=== PATIENT | male | born 1945 | race Caucasian/White ===

== ENCOUNTER 2019-08-14 06:35 | Emergency (ER) | payer MEDICARE, SELFPAY ==
[2019-08-14 06:39] VITALS: BP 102/55; PULSE 78; RESP 20; TEMP 37; O2SAT 99; BMI 17.6
--- NOTE | 2019-08-14 07:40 | CT_ITS ---
STUDY: CT ABDOMEN AND PELVIS WITHOUT CONTRAST REASON FOR EXAM: Male, 74 years old. Left gluteal mass RADIATION DOSAGE (If Supplied By Facility): CTDIvol = ( 7.60 ) mGy, DLP = ( 423.44 ) mGycm TECHNIQUE: Transaxial images were obtained from the dome of the diaphragm to the symphysis pubis without oral contrast, and without intravenous contrast. Sagittal and coronal images were reconstructed. Individualized dose optimization techniques were used for this CT. COMPARISON: None. FINDINGS: The visualized lung bases are unremarkable. The visualized portions of the heart are within normal limits. Normal liver. Normal gallbladder and extrahepatic biliary system. Normal spleen. Normal pancreas. Normal bilateral adrenal glands. 2 cm cyst in the upper pole the right kidney. Normal left kidney. Normal visualized stomach. Normal small intestine. Normal colon. There is non-visualization of the appendix. Normal abdominal aorta. Normal inferior vena cava. Normal retroperitoneum. Normal urinary bladder. There is a large (10 cm round) collection of gas within the medial aspect of the left buttock consistent with an abscess which continues anteriorly and superiorly into the pelvis with slight displacement of the rectum to the left. There is no definite sinus tract to the skin surface to suggest decubitus ulcer. No bone destruction to suggest osteomyelitis. Normal osseous structures. CT/Abdomen/Pelvis without Cont IMPRESSION: 10 cm gas collection of the medial aspect of the left buttock worrisome for abscess which extends superiorly and anteriorly into the inferior aspect of the pelvis with displacement of the rectum to the right. Electronically Signed: Hector Eddy MD at 8:50 EDT Tel , Service support ,
--- NOTE | 2019-08-14 07:41 | EKG12_ITS ---
Test Reason : LOWER EXTREM PAIN Blood Pressure : / mmHG Vent. Rate : 076 BPM Atrial Rate : 076 BPM P-R Int : 128 ms QRS Dur : 080 ms QT Int : 380 ms P-R-T Axes : 077 082 065 degrees QTc Int : 427 ms Normal sinus rhythm Normal ECG Confirmed by GWENDOLYN VILLALTA, SHADY ([id number]), proposal editor PARKER JIMENEZ ([id number]) on 08/20/2019 10:56:55 AM Referred By: RYAN Confirmed By:ULISSES SNOW MD
--- NOTE | 2019-08-14 07:42 | ED.DCSUM_ITS ---
History of Present Illness Chief Complaint: Lower Extremity Injury Informant: Patient, Family Onset: - - Possibly a year or more Current Severity: Mild Narrative: Please note the patient has no left lower extremity injury The patient presents with his daughter they both report that for possibly a year or more he has not felt well he has had a growth or fullness area to the left buttock that has gotten progressively worse to the point now he cannot eat he makes very little urine and consciously produces diarrheal bowel movements. He is lost quite a bit of weight. It is to the point now that the left buttock fullness or growth is such that he cannot lay on his back the daughter is been trying to seek medical attention for him for weeks but he is refused and finally it got to the point where he could not eat or drink and he was brought to the hospital for evaluation The patient has possibly never seen a physician in his entire life he believes in natural remedies for healthcare problems, he has no allergies and takes no medications Past Medical History - Allergies and Home Meds Allergies/Adverse Reactions: Allergies No Known Allergies Allergy (Verified 08/14/19 06:36) Primary Care Physician: Care Physician,No Primary [Primary Care Provider] - Past Medical History: - - None as above left buttock mass fullness for possibly a year Smoking Status: Former smoker Review of Systems General: Reports: Chills. Denies: Fever, Sweats Eyes: Denies: Visual changes - bilaterally, Diplopia ENT: Denies: Rhinorrhea, Sore throat Cardiovascular: Denies: Chest pain, Palpitations Respiratory: Denies: Dyspnea, Cough, Dyspnea on exertion Gastrointestinal: Reports: Abdominal pain, Nausea, Vomiting, Diarrhea. Denies: Melena, Hematochezia Genitourinary: Denies: Dysuria, Hematuria, Frequency Musculoskeletal: Denies: Back pain, Extremity Pain Skin: Denies: Rash, Wounds Neurological: Denies: Headache, Weakness, Numbness Physical Exam Vital Signs/Narrative: Vital Signs Temp Pulse Resp BP Pulse Ox 08/14/19 06:39 98.6 F 78 20 H 102/55 L 99 General: Cachectic, Acute Distress Head: Normocephalic, Atraumatic Eyes: Perrl, EOMI ENT: Moist mucous membranes, No rhinorrhea Neck: Supple, Nontender Cardiovascular: Regular rate, Regular rhythm, No murmurs Respiratory: No distress, CTA bilaterally, Chest nontender Abdomen: Soft, Nontender, Nondistended, Normal bowel sounds, - - Reducible right direct inguinal hernia that the patient can easily reduce just above the pubic crest is the skin defect site nontender Rectal: Tenderness, - - He has a large fullness to the left buttock area that appears to be a size of a small cantaloupe, this area swells into the perineum, rectal exam reveals fullness to the left side of the rectum with brown stool, apparent fluctuance, the rectal exam is limited due to pain : - - He has a reducible hernia as above that is nontender easy to reduce, he has no obvious scrotal discomfort Back: Nontender, Normal Inspection Extremities: Nontender, No edema, - - There is a large firm mass to the left buttock the swelling related to this mass there appears to be some fluctuance quite a bit of tenderness extends into the perineum as above t there is some slight redness Skin: Normal color, No rash Neurological: Alert, Oriented x3, Cranial nerves II-XII grossly intact, Normal Strength, Normal Sensation Psychological: Normal affect, Normal Mood Diagnostic/Tx/Re-eval - Medical Decision Making The patient presents with this mass as above vomiting diarrhea unable to care for himself at home no prior healthcare assessments given all the above screening labs obtained IV fluids CT scan pain management and further evaluation white count is 22,000, lactate is 1.7, see the other screening labs, he received IV fluids IV antibiotics, CT scan shows gas involving the left buttock and extending into the left perineum and rectal area please see that report, Discussed the case with the [facility] on-call surgery attending, who after reviewing the images felt the patient could be transferred to tertiary care center, spoke with the family who recommended either [facility] or [facility] spoke with the [facility] as no appropriate beds were available, spoke with [facility] who accepted the patient in transfer to the emergency department for the management Discussed all the above with the patient and his daughter they agree he remains hemodynamicly stable we will transfer all of his records images and arrange for immediate transfer Transfer to [facility] ED Final impression Necrotizing fasciitis left perineum left buttock ED Disposition - Plan for ED Patient: Diagnosis: Necrotizing fasciitis Referrals: Care Physician,No Primary [Primary Care Provider] - Additional Instructions: Transfer via ambulance to be seen at the [facility] emergency department
--- NOTE | 2019-08-14 07:55 | RAD_ITS ---
STUDY: X-RAY CHEST REASON FOR EXAM: Male, 74 years old. Shortness of breath TECHNIQUE: Single AP portable view of the chest. COMPARISON: None. FINDINGS: The lungs are clear and expanded. There is no demonstrated pleural abnormality. Normal size heart. Normal mediastinum and eliana. Normal visualized pulmonary arteries. Normal visualized aortic arch and descending thoracic aorta. Normal visualized thoracic spine. Normal visualized ribs, clavicles, and shoulders. There is no demonstrated abnormality of the visualized soft tissue structures of the upper abdomen. RAD/Chest 1 View (Portable) IMPRESSION: Normal x-ray examination of the chest. Electronically Signed: Hector Eddy MD at 8:31 EDT Tel , Service support ,
[2019-08-14 08:03] LABS: Absolute Lymphocyte Count 0.71 X10^3/uL (0.83-4.51); Absolute Neutrophil Count 19.8 X10^3/uL (2.0-7.7); Basophil# 0.15 X10^3/uL; Basophil% 0.7 % (0-1); Differential Indicated SCAN CRITERIA MET; Eosinophil# 0.02 X10^3/uL; Eosinophils% 0.1 % (0-5); Hematocrit 37.1 % (40-54); Hemoglobin 12.4 g/dL (13.0-16.5); Lymphocyte # 0.71 X10^3/ul (4.0); Lymphocyte % 3.1 % (19-41); Mean Corp Hgb Conc 33.4 g/dL (32-36); Mean Corpuscular Hgb 29.1 pg (27.0-32.0); Mean Corpuscular Volume 87.1 fL (80-94); Mean Platelet Vol. 8.3 fl (6.2-12.0); Monocyte# 1.79 X10^3/uL; Monocyte% 7.9 % (0-10); NRBC Flagged by Analyzer 0 % (0-5); Neutrophil # 19.82 X10^3/uL (2.7-7.7); Neutrophil % 87.2 % (47-70); POSITIVE DIFFERENTIAL YES; Platelet Count 585 K/mm3 (150-450); RBC Distribution Width CV 12.9 % (11.6-14.6); RBC Distribution Width SD 40.8 fl (35.1-43.9); Red Blood Count 4.26 M/mm3 (4.6-6.2); White Blood Count 22.7 K/mm3 (4.4-11.0)
[2019-08-14] MEDS: 0.9% Normal Saline 1,000 ML 1000 ML IV (08:07)
[2019-08-14] MEDS: Morphine 4 MG/ML Syringe IV ×2 (08:08→09:43)
[2019-08-14] MEDS: Ondansetron 4 MG/2 ML Vial IV (08:09)
[2019-08-14 08:13] VITALS: BP 110/49; PULSE 68; RESP 18; O2SAT 99
[2019-08-14 08:21] LABS: ALB/GLOB Ratio 0.6 RATIO (0.9-2.4); AST(SGOT) 24 U/L (15-37); Alanine Aminotransfer ALT/SGPT 35 U/L (16-61); Albumin, Serum 2.3 g/dL (3.2-5.0); Alkaline Phosphatase 115 U/L (45-117); Anion Gap 7 (5-15); BUN 24 mg/dL (7-18); BUN/Creat Ratio 30.3 RATIO (10-20); Calcium,Total 8.3 mg/dL (8.5-10.1); Chloride 102 mmol/L (98-107); Creatinine, Serum 0.79 mg/dL (0.70-1.30); EST Glomerular Filtration Rate 102 mL/min (>60); Est Glom Filt Rate - Afr Amer 123 mL/min (>60); Estimated Creatinine Clearance 50.34 ml/min; Globulin 3.7 g/dL (2.2-4.2); Glucose 109 mg/dL (74-106); Lipase 70 U/L (73-393); Potassium 3.7 mmol/L (3.5-5.1); Sodium Level 136 mmol/L (136-145)
[2019-08-14 09:31] LABS: Lactic Acid 1.7 mmol/L (0.4-2.0)
[2019-08-14 09:31] LABS: Mucous, Urine 0 SEEN /hpf (<or=2+); Red Blood Cells-Urine 0 SEEN /hpf (0-5)
[2019-08-14 09:39] LABS: Color, Urine Yellow (Yellow); Glucose, Dipstick Normal (Normal); Ketone-Dipstick 5 mg/dl (Negative); Leukocyte Esterase-Dipstick 25 /ul (Negative); Nitrite-Dipstick Negative (Negative); Occult Blood-Urine Negative /ul (Negative); Protein-Dipstick 30 mg/dl (Negative); Urine Bilirubin Dipstick Negative (Negative); Urine Clarity Sl. Cloudy (Clear); Urine Urobilinogen 4 mg/dl (Normal)
[2019-08-14 09:41] LABS: Bacteria 1+ /hpf (None Seen); Squamous Epithelial Cells - UA 0-5 SEEN /hpf (0-5); White Blood Cells 0-5 SEEN /hpf (0-5)
[2019-08-14] MEDS: metroNIDAZOLE 500 MG/100 ML BAG 100 MG IV (10:55)
[2019-08-14 10:59] VITALS: BP 101/58; PULSE 79; PULSE 80; RESP 18; TEMP 36.6; O2SAT 98; O2SAT 99
[2019-08-14 11:01] VITALS: BP 101/58; PULSE 85; RESP 18; TEMP 36.6; O2SAT 99
--- NOTE | 2019-08-14 11:51 | ED.RN ---
VANCOMYCIN SENT WITH SQUAD
[2019-08-14 11:57] VITALS: BP 101/52; PULSE 73; RESP 18; TEMP 37; O2SAT 99
[2019-08-14 12:56] LABS: Pathologist Review Reviewed
== END 2019-08-14 11:58 | disposition short-term general hospital (02) ==
PROVIDERS: Emergency Provider Emergency Medicine
DX: M72.6 Necrotizing fasciitis (principal); R64 Cachexia; K40.90 Unilateral inguinal hernia, without obstruction or gangrene, not specified as recurrent; R19.7 Diarrhea, unspecified; R10.9 Unspecified abdominal pain; R11.2 Nausea with vomiting, unspecified; Z87.891 Personal history of nicotine dependence
CPT/HCPCS: 71045; 74176; 80053; 81001; 83605; 83690; 84484; 85025; 87040; 87086; 93005; 96361; 96365; 96366; 96367; 96375; 96376; 99285; J7030; J7050; A4216; J2405

== ENCOUNTER 2019-08-23 11:36 | Inpatient (IN) | payer MEDICARE, SELFPAY ==
[2019-08-23 11:51] VITALS: BP 132/75; PULSE 85; RESP 16; TEMP 37.6; O2SAT 96; BMI 17.6; BMI 20.5
[2019-08-23] MEDS: DAKIN'S SOL HALF STRENGTH (=0.25%) 1 APPLIC TOPICAL ×2 (14:49→21:37)
--- NOTE | 2019-08-23 15:01 | HP.PCM_ITS ---
Problem List (1) Debility Status: Acute (2) Rectal mass Status: Acute (3) Left buttock abscess Status: Acute (4) Klebsiella infection Status: Acute (5) Cachexia Status: Chronic (6) Colostomy present Status: Acute History of Present Illness Date of Admission: 08/23/19 Chief Complaint: Here for rehabilitation, strengthening, prior to discharge home alone. The patient is a 74 year old Male with below past medical history presented to [facility] Emergency Department 08/14/2019 with left lower extremity injury. 08/14/2019 CT abdomen/pelvis showed left buttock gas concerning for abscess, extends superior anteriorly into inferior aspect of pelvis with displacement of rectum to the right. 08/14/2019 EKG normal sinus rhythm, normal EKG. 08/14/2019 Chest X-ray normal. Growth, fullness, left buttock x 1 year, worsening. Patient did not seek medical attention, he has not seen a doctor for his entire life. Loss of appetite, decrease urine output, unable to lie down due to left buttock pain. WBC 22, Lactate 1.7. IV Fluids, IV antibiotics given. Transferred to [facility]. 08/14/2019 Admit to [facility]. IV Vancomycin, IV Zosyn given for abscess. Rectal mass, abscess, fungating rectal mass. Underwent incision and drainage. Underwent laparoscopic colostomy, liver biopsy, abdominal washout. Large perirectal abscess. Palliative medicine consulted for pain management. Tylenol, Oxycodone, Dilaudid for pain control. Wound cultures growing light klebsiella. Zosyn thru 08/30/2019, then oral antibiotics. PT/OT for debility. CEA drawn, Cytology ordered, pending. 08/23/2019 Admit to TCU with debility, here for rehabilitation, strengthening, prior to discharge home alone. Past Medical History Past Medical History (Chronic Problems): Chronic Problems Cachexia (Chronic) Allergies No Known Allergies Allergy (Verified 08/14/19 06:36) Home Medications: Ambulatory Orders Medication Instructions Recorded Acetaminophen [Tylenol] 325 mg PO Q4H PRN PRN 08/23/19 Amoxicillin/Potassium Clav 1 ea PO Q12H 08/23/19 [Augmentin 875-125 Tablet] Desipramine [Norpramin] 25 mg PO QHS 08/23/19 Docusate Sodium 100 mg PO BID PRN PRN 08/23/19 Melatonin 3 mg PO QHS 08/23/19 Oxycodone HCl [Roxicodone] 15 mg PO Q4H PRN PRN 08/23/19 Polyethylene Glycol 3350 [Miralax] 17 gm PO DAILY 08/23/19 Sodium Hypochlorite [Dakins 1 applic TOPICAL TID 08/23/19 Solution 0.25% (1/2 Strength)] morphine SR tablet [MS Contin] 45 mg PO Q12H 08/23/19 Surgical History: - - Laparoscopic transverse colostomy, incision & drainage left buttock abscess, Sigmoidoscopy. Lives: Alone Smoking Status: Former smoker Tobacco Use: Cigarettes Alcohol: None Drugs: None - *Family History Paternal History Items: Cancer - Colon. Sibling History Items: Cancer - Sister with colon cancer., Diabetes Review of Systems Constitutional: Denies: Chills, Fever, Weight Change HEENT: Denies: Head Aches, Sinus Congestion, Sinus Drainage Cardiovascular: Denies: Chest Pain, Palpitations Respiratory: Denies: Cough, Shortness of breath at rest, Sputum production Gastrointestinal: Reports: Abdominal Pain - Liver pain.. Denies: Nausea, Vomiting Genitourinary: Denies: Dysuria Musculoskeletal: Denies: Joint Pain, Joint Tenderness Skin: Denies: Rash, Wounds Neurological: Denies: Numbness, Tingling, Focal weakness Psychiatric: Denies: Anxiety, Depression, Homicidal Ideations, Suicidal Ideations Hematologic/ Lymphatic: Denies: Easy Bruising, Easy Bleeding VTE Information - Inpt Only VTE Present on Admission: No VTE Mechan Device Prophylaxis: Knee High JASS Hose VTE Pharm Prophylaxis ordered?: Yes Patient Problems: Active and Suspected Problems Debility (Acute) Rectal mass (Acute) Left buttock abscess (Acute) Klebsiella infection (Acute) Colostomy present (Acute) - Physical Exam Vitals/I&O's: Vital Signs Temp Pulse Resp BP Pulse Ox 99.6 F H 85 16 132/75 H 96 08/23/19 11:51 08/23/19 11:51 08/23/19 11:51 08/23/19 11:51 08/23/19 11:51 Oxygen Delivery Method Room Air Weight: 63 kg Body Mass Index (BMI) 20.5 Intake and Output for Last 24 Hours 08/21/19 08/22/19 08/23/19 23:59 23:59 23:59 Intake Total 120 / 120 Balance 120 / 120 General: Alert, Oriented x3, Cooperative HEENT: Atraumatic, PERRLA, EOMI, Normocephalic Neck: Supple, No JVD, Negative Carotid Bruits Lungs: Clear to auscultation, Normal air movement Cardiovascular: Regular rate, No murmurs Abdomen: Bowel Sounds Present, Soft, Non Tender, - - Colostomy. Extremities: No edema, Capillary Refill Less than 3 Seconds Skin: No rashes, No breakdown Musculoskeletal: No Tenderness to Palpation of Joints or Extremities Neurological: Cranial nerves II-XII grossly intact Psych/Mental Status: Normal Affect, Appropriate Current Medications Acetaminophen (Tylenol) 325 mg PO Q4H PRN PRN PRN Reason: Pain Score 1-10/10 Amoxicillin/Clavulanate Potassium (Augmentin Tablet) 875 mg PO BIDCM [facility] Stop: 08/30/19 08:01 Desipramine HCl (Norpramin) 25 mg PO QHS [facility] Docusate Sodium (Colace) 100 mg PO BID PRN PRN PRN Reason: Constipation Melatonin (Melatonin) 3 mg PO QHS [facility] Morphine Sulfate (Ms Contin) 45 mg PO Q12 [facility] Nutritional Formula (Lactose Free) (Ensure Clear) 120 ml PO 4X/DAY [facility] Oxycodone HCl (Oxyir) 15 mg PO Q4H PRN PRN PRN Reason: Pain Score 6-10/10 Polyethylene Glycol (Miralax) 17 gm PO DAILY [facility] Sodium Hypochlorite (Dakins Solution 0.25% (1/2 Strength)) 1 applic TOPICAL TID [facility]; Protocol Last Admin: 08/23/19 14:49 Dose: 1 applicatio Documented by: Tuberculin PPD (Tubersol, Aplisol, Ppd) 5 tu ID [id number] ONE Stop: 08/24/19 10:01 Tuberculin PPD (Tubersol, Aplisol, Ppd) 5 tu ID [id number] ONE Stop: 08/31/19 10:01 Assessment/Plan All Active Problems Debility (Acute) Rectal mass (Acute) Left buttock abscess (Acute) Klebsiella infection (Acute) Colostomy present (Acute) 74 year old male with below past medical history hospitalized for perirectal abscess, fungating rectal mass, underwent incision and drainage, transverse colostomy, admitted to TCU with debility, here for rehabilitation, strengthening, prior to discharge home alone. * Debility - PT/OT. * Pain - Tylenol 650MG Q4H PRN pain (1-5), Oxycodone 15MG Q4H PRN pain (6-10), Morphine ER 45MG Q12H. * Bowel - Miralax 17GM daily, Senna/colace 2 tablets BID, Dulcolax 10MG daily PRN. * Pneumonia vaccination - Administer Prevnar 13 and/or Pneumovax 23 as necessary. * DVT prophylaxis - Lovenox 40MG SC daily. * Klebsiella wound infection - Augmentin 875MG BID thru 08/30/2019. * Insomnia - Doxepin 25MG QHS, Melatonin 3MG QHS. * Nutrition - Ensure 120ML 4x/day. * Buttock wounds - Dakin solution topical TID.
[2019-08-23 15:23] VITALS: BP 94/61; PULSE 79; RESP 18; TEMP 36.6; O2SAT 98
--- NOTE | 2019-08-23 15:58 | NURSING ---
PT ARRIVED BY COT FROM [facility] AT 11AM.
--- NOTE | 2019-08-23 15:59 | NURSING ---
PT WANTS TO TALK TO ABOUT GETTING THE FLU AND PNEUMOCOCCAL VACCINE BEFORE GETTING. REPORTED TO YAEL KEARNS
[2019-08-23] MEDS: morphine SR 15 MG Tablet 45 MG PO (17:39)
[2019-08-23] MEDS: Senna/Docusate Sodium 1 Tablet 2 TABLET PO (17:39)
[2019-08-23] MEDS: Ensure Clear 120 ML Liquid PO ×2 (17:40→21:34)
[2019-08-23] MEDS: Amox/Clavulanate 875 MG Tablet PO (17:40)
[2019-08-23] MEDS: Doxepin Hcl 25 MG Capsule PO (21:34)
[2019-08-23] MEDS: MELATONIN 3 MG TABLET PO (21:35)
[2019-08-24] MEDS: DAKIN'S SOL HALF STRENGTH (=0.25%) 1 APPLIC TOPICAL ×3 (05:39→21:04)
[2019-08-24] MEDS: Polyethylene Glycol 3350 17 GM PACKET PO (05:39)
[2019-08-24] MEDS: Ensure Clear 120 ML Liquid PO ×4 (05:39→20:47)
[2019-08-24] MEDS: Senna/Docusate Sodium 1 Tablet 2 TABLET PO ×2 (05:39→17:15)
[2019-08-24] MEDS: Enoxaparin 40 MG/0.4 ML Syringe SC (05:39)
[2019-08-24] MEDS: morphine SR 15 MG Tablet 45 MG PO ×2 (05:41→17:15)
[2019-08-24 06:50] LABS: Absolute Lymphocyte Count 1.38 X10^3/uL (0.83-4.51); Absolute Neutrophil Count 5.2 X10^3/uL (2.0-7.7); Basophil# 0.09 X10^3/uL; Basophil% 1.2 % (0-1); Eosinophil# 0.22 X10^3/uL; Hematocrit 33.5 % (40-54); Lymphocyte # 1.38 X10^3/ul (4.0); Lymphocyte % 18.6 % (19-41); Mean Corp Hgb Conc 32.8 g/dL (32-36); Mean Corpuscular Hgb 29.5 pg (27.0-32.0); Mean Corpuscular Volume 89.8 fL (80-94); Mean Platelet Vol. 8.8 fl (6.2-12.0); Monocyte# 0.49 X10^3/uL; Monocyte% 6.6 % (0-10); NRBC Flagged by Analyzer 0 % (0-5); Neutrophil # 5.18 X10^3/uL (2.7-7.7); Neutrophil % 69.9 % (47-70); Platelet Count 649 K/mm3 (150-450); RBC Distribution Width CV 13.7 % (11.6-14.6); RBC Distribution Width SD 44.6 fl (35.1-43.9); Red Blood Count 3.73 M/mm3 (4.6-6.2); White Blood Count 7.4 K/mm3 (4.4-11.0)
[2019-08-24 07:13] LABS: Anion Gap 4 (5-15); BUN 6 mg/dL (7-18); Calcium,Total 8.1 mg/dL (8.5-10.1); Chloride 107 mmol/L (98-107); EST Glomerular Filtration Rate 141 mL/min (>60); Est Glom Filt Rate - Afr Amer 170 mL/min (>60); Estimated Creatinine Clearance 58.63 ml/min; Glucose 107 mg/dL (74-106); Potassium 3.5 mmol/L (3.5-5.1); Sodium Level 138 mmol/L (136-145)
[2019-08-24] MEDS: Amox/Clavulanate 875 MG Tablet PO ×2 (09:03→17:15)
[2019-08-24] MEDS: Tuberculin,Purif.prot.deriv. 50 TU/ML Vial 5 ML ID (09:09)
[2019-08-24] MEDS: oxyCODONE 5 MG Tablet 15 MG PO ×2 (14:48→23:48)
--- NOTE | 2019-08-24 14:57 | NURSING ---
at 9;30am pt colostomy was leaking. paola patiño and this nurse in room to apply new colostomy.
[2019-08-24 15:42] VITALS: BP 109/55; PULSE 54; RESP 16; TEMP 36.9; O2SAT 98
[2019-08-24] MEDS: Doxepin Hcl 25 MG Capsule PO (20:47)
[2019-08-24] MEDS: Acetaminophen 325 MG Tablet 650 MG PO (20:47)
[2019-08-24] MEDS: MELATONIN 3 MG TABLET PO (20:47)
[2019-08-25] MEDS: morphine SR 15 MG Tablet 45 MG PO ×2 (05:46→17:28)
[2019-08-25] MEDS: Ensure Clear 120 ML Liquid PO ×4 (05:47→20:58)
[2019-08-25] MEDS: Enoxaparin 40 MG/0.4 ML Syringe SC (05:47)
[2019-08-25] MEDS: DAKIN'S SOL HALF STRENGTH (=0.25%) 1 APPLIC TOPICAL ×3 (05:50→20:57)
[2019-08-25] MEDS: Amox/Clavulanate 875 MG Tablet PO ×2 (09:11→17:30)
--- NOTE | 2019-08-25 09:13 | NURSING ---
colostomy leaking from bottom near umbilicus. skin cleaned, stoma beefy red, baseball size, new appliance applied. tried building up area near umbilicus. will continue to monitor. Pt helpful. pt washed up at sink and applied clean gown. bed linens changed. call light in reach.
--- NOTE | 2019-08-25 09:54 | NURSING ---
oncology notified of pt needing appt with them for colon cancer magaly to liver, assistant corporate secretary reporting that they will have doctors review his records first before scheduling appt. Awaiting return call.
--- NOTE | 2019-08-25 10:48 | RAD_ITS ---
STUDY: X-RAY - ABDOMEN/PELVIS REASON FOR EXAM: Male, 74 years old. Constipation TECHNIQUE: Two AP supine views of the abdomen and pelvis. COMPARISON: CT abdomen and pelvis dated 08/14/2019 FINDINGS: Normal visualized lung bases. Nonobstructive bowel gas pattern. No evidence of significant constipation. No evidence of free air. The visualized liver, spleen and kidneys are grossly normal in size and morphology. Normal soft tissue structures. Osseous degenerative changes with possible dextroscoliosis of the thoracolumbar spine. RAD/Abdomen Single View (Portable) IMPRESSION: No acute findings Electronically Signed: Demian Benz DO at 11:32 EDT Tel , Service support ,
--- NOTE | 2019-08-25 11:07 | NURSING ---
Colostomy bag leaking. New colostomy bag applied the following way: Skin cleansed and dried, stoma powder applied, applied a small strip of duoderm to right side of stoma, paste applied to flange area, flange applied, duoderm cut to half zuni and applied to inner circumference of flange ( inner zuni where bag connects), duoderm on top of right outside of flange.
[2019-08-25 11:28] VITALS: PULSE 99; RESP 16
[2019-08-25] MEDS: oxyCODONE 5 MG Tablet 20 MG PO (15:42)
--- NOTE | 2019-08-25 15:49 | NURSING ---
Colostomy bag no longer intact. Colostomy bag replaced using the following steps: Skin cleansed and dried completely, skin barrier applied to surrounding area, stoma powder applied, duoderm applied to right of stoma, duo derm applied to umbilical area, paste applied to flange area, flange applied, duoderm applied over right side of flange and lower end of flange, duoderm secured to flange with paper tape and bag attached.
[2019-08-25 16:00] VITALS: BP 119/72; PULSE 84; RESP 16; TEMP 37.3; O2SAT 96
--- NOTE | 2019-08-25 18:02 | NURSING ---
dr morrison updated on KUB being negative, new order to [facility].
[2019-08-25] MEDS: Acetaminophen 325 MG Tablet 650 MG PO (20:56)
[2019-08-25] MEDS: MELATONIN 3 MG TABLET PO (20:56)
[2019-08-25] MEDS: Doxepin Hcl 25 MG Capsule PO (20:57)
[2019-08-26] MEDS: oxyCODONE 5 MG Tablet 20 MG PO ×3 (02:40→18:42)
[2019-08-26] MEDS: Ensure Clear 120 ML Liquid PO ×4 (02:42→20:57)
--- NOTE | 2019-08-26 02:43 | NURSING ---
Patients colostomy bag changed. Stoma measured 10 mm bigger that yesterday. Patient states he is having increased pain today. Charge nurse notified.
[2019-08-26] MEDS: DAKIN'S SOL HALF STRENGTH (=0.25%) 1 APPLIC TOPICAL ×3 (02:56→21:18)
[2019-08-26] MEDS: Enoxaparin 40 MG/0.4 ML Syringe SC (06:56)
[2019-08-26] MEDS: morphine SR 15 MG Tablet 45 MG PO ×2 (06:58→17:14)
[2019-08-26] MEDS: Amox/Clavulanate 875 MG Tablet PO ×2 (08:41→17:17)
--- NOTE | 2019-08-26 09:53 | PCM.PN.RX ---
<Matti Schuler C - Last Filed: 08/26/19 09:53> Progress Note - Pharmacy Subjective: [] TCU Admission Objective: Allergies No Known Allergies Allergy (Verified 08/14/19 06:36) Current Medications Generic Name Dose Route Start Last Admin Trade Name Freq PRN Reason Stop Dose Admin Acetaminophen 650 mg 08/23/19 15:25 08/25/19 20:56 Tylenol PO 650 mg Q4H PRN PRN Administration Pain Score 1-5/10 Amoxicillin/Clavulanate Potassium 875 mg 08/23/19 17:00 08/26/19 08:41 Augmentin Tablet PO 08/30/19 08:01 875 mg BIDCM GREG Administration Bisacodyl 10 mg 08/23/19 15:25 Dulcolax PO DAILY PRN Constipation Doxepin HCl 25 mg 08/23/19 22:00 08/25/19 20:57 Sinequan PO 25 mg QHS GREG Administration Enoxaparin Sodium 40 mg 08/24/19 06:00 08/26/19 06:56 Lovenox SC 40 mg DAILY@0600 GREG Administration Melatonin 3 mg 08/23/19 22:00 08/25/19 20:56 Melatonin PO 3 mg QHS GREG Administration Morphine Sulfate 45 mg 08/23/19 18:00 08/26/19 06:58 Ms Contin PO 45 mg Q12 GREG Administration Nutritional Formula (Lactose Free) 120 ml 08/23/19 17:00 08/26/19 02:42 Ensure Clear PO 120 ml 4X/DAY GREG Administration Oxycodone HCl 20 mg 08/25/19 08:31 08/26/19 02:40 Oxyir PO 20 mg Q4H PRN PRN Administration Pain Score 6-10/10 Polyethylene Glycol 17 gm 08/24/19 06:00 08/26/19 01:44 Miralax PO Not Given DAILY GREG Senna/Docusate Sodium 2 tablet 08/25/19 12:47 Senokot-S, Lawanda-Colace PO BID PRN Constipation Sodium Hypochlorite 1 applic 08/23/19 14:00 08/26/19 02:56 Dakins Solution 0.25% (1/2 Strength) TOPICAL 1 applicatio TID GREG Administration Protocol Tuberculin PPD 5 tu 08/31/19 10:00 Tubersol, Aplisol, Ppd ID 08/31/19 10:01 X1 ONE Problem List Debility (Acute) Rectal mass (Acute) Left buttock abscess (Acute) Klebsiella infection (Acute) Cachexia (Chronic) Colostomy present (Acute) Vital Signs Temp Pulse Resp BP Pulse Ox 99.2 F H 84 16 119/72 96 08/25/19 16:00 08/25/19 16:00 08/25/19 16:00 08/25/19 16:00 08/25/19 16:00 Oxygen Delivery Method Room Air Weight: 63 kg Body Mass Index (BMI) 20.5 Sodium 138 mmol/L (136-145) 08/24/19 06:23 Potassium 3.5 mmol/L (3.5-5.1) 08/24/19 06:23 Chloride 107 mmol/L (98-107) 08/24/19 06:23 Carbon Dioxide 27.0 mmol/L (21.0-32.0) 08/24/19 06:23 Anion Gap 4 (5-15) L 08/24/19 06:23 BUN 6 mg/dL (7-18) L 08/24/19 06:23 Creatinine 0.60 mg/dL (0.70-1.30) L 08/24/19 06:23 Est GFR (MDRD) Af Amer 170 mL/min (>60) 08/24/19 06:23 Est GFR (MDRD) Non-Af 141 mL/min (>60) 08/24/19 06:23 BUN/Creatinine Ratio 10.0 RATIO (10-20) 08/24/19 06:23 Glucose 107 mg/dL (74-106) H 08/24/19 06:23 Assessment/Plan: 1) Pain: Acetaminophen 650mg po q4h prn for pain score 1-5/10, Oxycodone 20mg po q4h prn for pain score 6-10/10, MS Contin 45mg po q12 hours. Please continue to monitor prn usage and for signs/symptoms of increased/decreased pain. 2) DVT prophylaxis: Lovenox 40mg subq once daily. Pt's Plts are 649. Please continue to monitor. Pt's SrCr is 0.6, and CrCl is 58. Please continue to monitor. 3) Wound Infection: Augmentin 875mg po bid through 08/30/19. Please continue to give medication with food to minimize gi effects. Please continue to monitor for signs/symptoms of infection. Psychotropic Medications: Melatonin 3mg po qhs, Doxepin 25mg po qhs. At least one medication will require a GDR by 01/2020 Unnecessary Medications: none *Bowel Regimen: Bisacodyl 10mg po daily prn for constipation, Miralax 17gm po daily, Senna/Docusate 2 tablets po bid prn for constipation. Pt has not received 2 out of 3 possible Miralax dosed due to diarrhea/loose stool. Please consider making Miralax prn. Thanks Date of Note:: 08/26/19 - Provider Comments Provider responsibility: Provider responsible to enter orders to implement recommendations <Forrest Florence Chi - Last Filed: 08/26/19 17:22> Progress Note - Pharmacy Subjective: [] Objective: Allergies No Known Allergies Allergy (Verified 08/14/19 06:36) Current Medications Generic Name Dose Route Start Last Admin Trade Name Freq PRN Reason Stop Dose Admin Acetaminophen 650 mg 08/23/19 15:25 08/25/19 20:56 Tylenol PO 650 mg Q4H PRN PRN Administration Pain Score 1-5/10 Amoxicillin/Clavulanate Potassium 875 mg 08/23/19 17:00 08/26/19 17:17 Augmentin Tablet PO 08/30/19 08:01 875 mg BIDCM GREG Administration Bisacodyl 10 mg 08/23/19 15:25 Dulcolax PO DAILY PRN Constipation Doxepin HCl 25 mg 08/23/19 22:00 08/25/19 20:57 Sinequan PO 25 mg QHS GREG Administration Enoxaparin Sodium 40 mg 08/24/19 06:00 08/26/19 06:56 Lovenox SC 40 mg DAILY@0600 GERG Administration Melatonin 3 mg 08/23/19 22:00 08/25/19 20:56 Melatonin PO 3 mg QHS GREG Administration Morphine Sulfate 45 mg 08/23/19 18:00 08/26/19 17:14 Ms Contin PO 45 mg Q12 GREG Administration Nutritional Formula (Lactose Free) 120 ml 08/23/19 17:00 08/26/19 17:16 Ensure Clear PO 120 ml 4X/DAY GREG Administration Oxycodone HCl 20 mg 08/25/19 08:31 08/26/19 11:06 Oxyir PO 20 mg Q4H PRN PRN Administration Pain Score 6-1010 Polyethylene Glycol 17 gm 08/24/19 06:00 08/26/19 01:44 Miralax PO Not Given DAILY [facility] Senna/Docusate Sodium 2 tablet 08/25/19 12:47 Senokot-S, Lawanda-Colace PO BID PRN Constipation Sodium Hypochlorite 1 applic 08/23/19 14:00 08/26/19 15:42 Dakins Solution 0.25% (1/2 Strength) TOPICAL 1 applicatio TID [facility] Administration Protocol Tuberculin PPD 5 tu 08/31/19 10:00 Tubersol, Aplisol, Ppd ID 08/31/19 10:01 X1 ONE Problem List Debility (Acute) Rectal mass (Acute) Left buttock abscess (Acute) Klebsiella infection (Acute) Cachexia (Chronic) Colostomy present (Acute) Vital Signs Temp Pulse Resp BP Pulse Ox 98.2 F 105 H 21 H 119/70 99 08/26/19 15:16 08/26/19 15:16 08/26/19 15:16 08/26/19 15:16 08/26/19 15:16 Oxygen Delivery Method Room Air Weight: 63 kg Body Mass Index (BMI) 20.5 Sodium 138 mmol/L (136-145) 08/24/19 06:23 Potassium 3.5 mmol/L (3.5-5.1) 08/24/19 06:23 Chloride 107 mmol/L (98-107) 08/24/19 06:23 Carbon Dioxide 27.0 mmol/L (21.0-32.0) 08/24/19 06:23 Anion Gap 4 (5-15) L 08/24/19 06:23 BUN 6 mg/dL (7-18) L 08/24/19 06:23 Creatinine 0.60 mg/dL (0.70-1.30) L 08/24/19 06:23 Est GFR (MDRD) Af Amer 170 mL/min (>60) 08/24/19 06:23 Est GFR (MDRD) Non-Af 141 mL/min (>60) 08/24/19 06:23 BUN/Creatinine Ratio 10.0 RATIO (10-20) 08/24/19 06:23 Glucose 107 mg/dL (74-106) H 08/24/19 06:23 Assessment/Plan: Psychotropic Medications: Unnecessary Medications: Bowel Regimen: - Provider Comments Provider responsibility: Provider responsible to enter orders to implement recommendations Provider Comments to Recommendations by Pharmacy: Agree
[2019-08-26 15:16] VITALS: BP 119/70; PULSE 105; RESP 21; TEMP 36.8; O2SAT 99
--- NOTE | 2019-08-26 18:49 | NURSING ---
Addendum entered by Sonia Peralta 08/26/19 18:50: Patient reassessed after receiving MS Contin as scheduled. Patient in bed guarding abdomen and states he is having excruciating pain. Patient given PRN OxyIR and charge nurse notified. Original Note: Patient reassessed after receiving MS Contin as scheduled. Patient in bed gaurding abdomen and states he is having excruciating pain. Patient given PRN OxyIR and charge nurse notified.
[2019-08-26] MEDS: MELATONIN 3 MG TABLET PO (20:59)
[2019-08-26] MEDS: Doxepin Hcl 25 MG Capsule PO (20:59)
[2019-08-27] MEDS: oxyCODONE 5 MG Tablet 20 MG PO ×3 (01:36→20:53)
[2019-08-27] MEDS: Acetaminophen 325 MG Tablet 650 MG PO ×2 (01:36→15:16)
[2019-08-27] MEDS: DAKIN'S SOL HALF STRENGTH (=0.25%) 1 APPLIC TOPICAL ×3 (04:59→22:38)
[2019-08-27] MEDS: Ensure Clear 120 ML Liquid PO (04:59)
[2019-08-27] MEDS: morphine SR 15 MG Tablet 45 MG PO ×2 (04:59→17:22)
--- NOTE | 2019-08-27 07:23 | NURSING ---
Pt's ostomy noted to be larger in size and pink vs beef red. Ostomy leaking, drsging removed,skin irritated. Skin surrounding stoma cleansed with soap and water, patted dry. Bleeding noted to base of stoma on left side, small amt. Skin prep applied along with new new appliance and small amt of stoma paste. Will update Dr Florence. Will check to see if Lovenox should be given or held.
[2019-08-27] MEDS: Amox/Clavulanate 875 MG Tablet PO ×2 (08:37→17:22)
--- NOTE | 2019-08-27 11:41 | CASEMGMT ---
Social Work IDT met with patient and daughter for care plan meeting. Discussed patient's progress in therapy. Pt is SBA for toileting, UE and LE ADLS. Continuing to work on endurance and balance. Pt has new colostomy and is painful and has difficulty staying intact with leg exercises, etc. in therapy. Therapy will work on walking, steps and strengthening exercises. Pt is a new liver cancer dx. Nursing working on arranging doctor's appts in [place] vs [place]. Pt and dtr to take it day by day and will reach out to SW at their own pace. Pt cannot return to previous home and dtr cannot take him home on a long-term basis. Explained options with [place], SNF, HHC, Medicaid and Medicare coverage. Pt does not have secondary insurance and is not comfortable paying the copay after day 21 - target DC date 09/12. Explained to pt and dtr, SW will respect taking it day by day, but these options take time to coordinate. Offered assistance at any time with any option and to reach out when ready. Dtr and pt understood and thanked for information. Will continue to follow. Susan Cid, MGIUEL JOYCEW
--- NOTE | 2019-08-27 14:44 | NURSING ---
in to assess the stoma. as patient was resting in bed, noticed a leak near the umbilicus. removed the ostomy appliance. the stoma is beefy red and very edematous. daughter present at bedside and states that the stoma does appear larger than a few days ago. states that he noticed it was larger after he did some core work with therapy. the stoma measures approx 2 1/2 and is slightly oval in shape. the stool opening is near the skin level medially near the umbilicus. this is where most of the leaks are occurring. cannot build up too much in the area or the stool will leak under the appliance. peristomal skin is intact. some mild redness noted. cleansed the peristomal skin with Dial soap and water. rinsed and pat dry. applied a 2 piece flat 4 Eric appliance with the opening cut to approx 2 3/4 with an Adaptic ring and a small dab of paste where the stool opening is. pt tolerated well. will monitor the stoma size. would not recommend a lot of core work at this time. will order some larger appliances to see what will work best for the patient. pt appreciative of care. all questions answered at this time and emotional support provided to patient and family. states they are unsure of the extent of treatment patient wants at this time. has not discussed with the oncologist yet.
[2019-08-27 15:16] VITALS: BP 111/78; PULSE 94; RESP 20; TEMP 36.8; O2SAT 99
--- NOTE | 2019-08-27 18:08 | NURSING ---
RLQ CONCEPCIÓN drain site suture removed without incident. site with some redness, other suggs unremarkable. pt tolerated procedure well
--- NOTE | 2019-08-27 21:15 | NURSING ---
Colostomy leaking. New appliance applied.
--- NOTE | 2019-08-27 22:05 | NURSING ---
Colostomy bag changed again. New appliance applied.
[2019-08-27] MEDS: Doxepin Hcl 25 MG Capsule PO (22:37)
[2019-08-27] MEDS: MELATONIN 3 MG TABLET PO (22:37)
[2019-08-28] MEDS: oxyCODONE 5 MG Tablet 20 MG PO ×4 (02:23→23:21)
--- NOTE | 2019-08-28 03:50 | NURSING ---
Colostomy leaking. New appliance applied.
[2019-08-28] MEDS: morphine SR 15 MG Tablet 45 MG PO ×2 (06:21→17:40)
[2019-08-28] MEDS: DAKIN'S SOL HALF STRENGTH (=0.25%) 1 APPLIC TOPICAL ×3 (06:47→19:58)
--- NOTE | 2019-08-28 08:29 | NURSING ---
was called by the night clerk auditor RN this am stating the ostomy appliance was changed 3 times last pm and is currently leaking. in to assess the appliance at this time. leaking at the lateral and medial sides. removed the appliance. the stoma appears slightly less edematous today. peristomal skin with some mild irritation noted. removed as much as the stoma paste as possible. this was difficult to remove. did notice more bulging to the lower abdomen just inferior to the stoma. unsure if this is tumor or dilation of the bowel. this may also be contributing to the leaks. the stool opening sits right at skin level and this is where most the leaks have been occurring. cleansed peristomal skin with warm water. pat dry. applied a new 2 piece flat Coloplast appliance with a small amount of stoma paste and an Adapt ring. will closely monitor. pt has an appt this am with Dr Webb. pt denies further needs at this time.
[2019-08-28 10:00] VITALS: PULSE 106; RESP 14; O2SAT 99
[2019-08-28] MEDS: Amox/Clavulanate 875 MG Tablet PO ×2 (11:15→17:39)
[2019-08-28] MEDS: Ensure Clear 120 ML Liquid PO ×2 (11:15→17:39)
--- NOTE | 2019-08-28 15:03 | NURSING ---
Pt had another leak. states he had a very large amount of stool come out all at once. states was slightly thicker. feels the pressure just pushed the appliance off. the peristomal skin is starting to get slightly irritated. cleansed gently with warm water. pat dry. applied a new 1 piece Coloplast appliance #[id number]. used small amount of stoma paste and did not use an Adapt ring this time to keep closer to the skin. pt tolerated well. pt talked a lot with this nurse about his appointment with the oncologist. states that he plans to leave with Hospice care. States he is good with it. talked a lot about his sedrick and how he is at peace with God. states I'm ready. pt tearful off and on. emotional support and listening ear provided. pt denies further needs at this time. will continue to monitor. there are extra supplies in room if needed.
[2019-08-28 15:25] VITALS: BP 127/77; PULSE 98; RESP 17; TEMP 36.7; O2SAT 97
--- NOTE | 2019-08-28 16:25 | CHAPLAIN ---
Type of Pastoral Visit _x__ Initial Visit ___ Follow-up Visit ___ On-call Visit ___ General Patient Visit ___ Spiritual Assessment ___ Family Conference ___ Bereavement ___ Rapid Response ___ Code Blue ___ Other (describe below) Pastoral Care Referral From _x__ Patient ___ Family _x__ Nurse ___ Physician ___ Java Web Application Developer ___ Operations Advisor ___ Other (describe below) Sacrament/Intervention _x__ Active listening ___ Anointing ___ Druze ___ Bereavement ___ Communion _x__ Lindsay exploration ___ _x__ Life review _x__ Prayer ___ Reconciliation ___ Sacrament of Sick _x__ Supportive presence ___ Wedding ___ Other (describe below) Pastoral Comments patient received news of terminal cancer diagnosis earlier; daughter is with him at bedside; pt is very spiritually minded and presents with very good attitude about diagnosis and ; family unit is small but daughter gives lots of support; pt welcomed prayer and future visits from manager insurance
--- NOTE | 2019-08-28 17:06 | CASEMGMT ---
Addendum entered by Susan Cid 08/28/19 17:22: [facility] meeting scheduled 08/29 at 10:30 am. Will continue to follow. Original Note: Social Work Received call from Oncology office to discuss with pt hospice options. Met with daughter and pt and spoke at length about wishes and hospice options - SNF, [facility] and Home, along with financial liability. Pt chose for a referral to [facility] with [facility], if not eligible at this time, for [facility] to follow at [facility] and will apply for Medicaid. Referrals made to [facility] and [facility]. Provided pt with Medicaid application. [facility] to schedule assessment, and will move forward with next step. MIGUEL VelascoW
[2019-08-28] MEDS: MELATONIN 3 MG TABLET PO (19:57)
[2019-08-28] MEDS: Doxepin Hcl 25 MG Capsule PO (19:57)
[2019-08-29] MEDS: Ensure Clear 120 ML Liquid PO ×3 (05:16→16:40)
[2019-08-29] MEDS: morphine SR 15 MG Tablet 45 MG PO ×2 (05:16→16:37)
[2019-08-29] MEDS: DAKIN'S SOL HALF STRENGTH (=0.25%) 1 APPLIC TOPICAL ×2 (05:23→14:48)
[2019-08-29] MEDS: Amox/Clavulanate 875 MG Tablet PO ×2 (07:42→16:48)
[2019-08-29 10:00] VITALS: PULSE 100; RESP 18
--- NOTE | 2019-08-29 10:05 | NURSING ---
Colostomy appliance had been changed 4 times yesterday. 3 times last evening within 2 hours. appliance is currently intact. had suggested nursing try a wound drainage appliance since the other appliances have not seemed to be sealing well. this is what has held the best so far. will continue to monitor. pt and daughter to meet with Hospice this am. pt aware to call if leak noted.
--- NOTE | 2019-08-29 10:51 | NURSING ---
Pt had been up into the bathroom to empty the appliance. noticed a small leak near the umbilicus. pt back into bed. removed appliance. very little irritation noted to the peristomal skin. cleansed with Dial soap and water. rinsed and dried. applied a larger wound drainage appliance. this appliance has seemed to hold better and is more flexible. applied with a small amount of stoma paste. pt tolerated well. pt and daughter are currently meeting with Hospice. will continue to monitor.
[2019-08-29] MEDS: oxyCODONE 5 MG Tablet 20 MG PO (11:47)
--- NOTE | 2019-08-29 14:54 | DCINST_ITS ---
- Discharge Diagnoses Current Active Problems: Current Active and Chronic Problems (Last Updated 08/28/19 @ 11:07 by Micki Jara) Debility (Acute) Left buttock abscess (Acute) Klebsiella infection (Acute) Cachexia (Chronic) Colostomy present (Acute) Rectum cancer (Acute) Liver metastases (Acute) You will use the following diet at home:: No restrictions, Regular Your food should be the consistency of: Regular Your liquids should be the consistency of: Regular/Thin Discharge Activity: Return to Normal Activity, May Shower, Use Walker Weight Bearing Status: Weight bearing as tolerated Call your doctor if you observe: Fever of 101 or Higher, Inability to urinate, Inability to have a bowel movement, Shortness of breath, Chest pain, Uncontrolled pain Allergies/Adverse Reactions: Allergies No Known Allergies Allergy (Verified 08/14/19 06:36) Medications to take at Discharge Acetaminophen [Tylenol] 325 mg PO Q4H PRN PRN 08/23/19 Melatonin 3 mg PO QHS 08/23/19 Polyethylene Glycol 3350 [Miralax] 17 gm PO DAILY 08/23/19 Sodium Hypochlorite [Dakins Solution 0.25% (1/2 Strength)] 1 applic TOPICAL TID 08/23/19 Bisacodyl [Dulcolax] 10 mg PO DAILY PRN tablet 08/29/19 Doxepin HCl [Sinequan] 25 mg PO QHS capsule 08/29/19 Ensure Clear 120 ml PO 4X/DAY liquid 08/29/19 Oxycodone HCl [Roxicodone] 15 mg PO Q4H PRN PRN 7 Days #60 tab 08/29/19 Senna/Docusate Sodium [Senokot-S] 2 tablet PO BID PRN tablet 08/29/19 morphine SR tablet [Ms Contin] 45 mg PO Q12H 7 Days #42 tab 08/29/19 The following prescriptions were given: morphine SR tablet [Ms Contin] 45 mg PO Q12H 7 Days #42 tab Prescription Printed Oxycodone HCl [Roxicodone] 15 mg PO Q4H PRN PRN 7 Days #60 tab PRN Reason: Pain Score 6-10/10 Prescription Printed Primary Care Physician: Care Physician,No Primary [Primary Care Provider] - Please follow up with your Primary Care Physician in: N/A. Test Results: Test results from this visit will be discussed in further detail at your follow- up appointment, if applicable. Please Follow Up With: Christian Cintron MD When: N/A. Please Follow Up With: Yaima uQach MD When: N/A. Please Follow Up With: [facility] When: N/A. Please Follow Up With: Miryam Chandler APRN-AGA When: N/A. Please Follow Up With: Cruz Grover MD When: N/A. Please Follow Up With: Catherine Webb MD When: N/A. Proposed Discharge Date: 08/29/19
--- NOTE | 2019-08-29 14:55 | PCM.DC.SUM ---
Discharge Date and Diagnosis - Problem List Patient Problems: Active and Suspected Problems (Last Updated 08/28/19 @ 11:07 by Micki Jara) Debility (Acute) Left buttock abscess (Acute) Klebsiella infection (Acute) Colostomy present (Acute) Rectum cancer (Acute) Liver metastases (Acute) Date of Admission: 08/23/19 Date of Discharge: 08/29/19 - Primary Discharge Diagnosis Active and Suspected Problems (Last Updated 08/28/19 @ 11:07 by Micki Jara) Debility (Acute) Left buttock abscess (Acute) Klebsiella infection (Acute) Colostomy present (Acute) Rectum cancer (Acute) Liver metastases (Acute) - Secondary Discharge Diagnosis Chronic Problems (Last Updated 08/28/19 @ 11:07 by Micki Jara) Cachexia (Chronic) Hospital Course and Treatment Imaging Results: 08/23/19 12:11 Diet: Regular Diet Type of Dietary Supplement:: Ensure Complete Clinical Impression(s) from Imaging Studies KUB X-Ray 08/25/19 10:48 IMPRESSION: No acute findings Electronically Signed: Demian Benz DO at 11:32 EDT Tel , Service support , Consultations 08/23/19 13:04 Consult: Onc/Wound/perinatal instructor Routine Comment: Operations: None Procedures: None Summary of Care Provided: The patient is a 74 year old Male with below past medical history hospitalized for perirectal abscess, fungating rectal mass, underwent incision and drainage, transverse colostomy, admitted to TCU with debility, here for rehabilitation, strengthening, prior to discharge home alone. 08/28/[address] 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 Patient is status post palliative drainage of the left buttock abscess and a divergent colostomy. 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 He cannot tolerate any systemic anticancer therapy without further deterioration of his general condition and therefore I advised maximum comfort measures on the hospice program. Discharge to Inpatient Hospice Unit for pain control. Patient Problems: Active and Suspected Problems (Last Updated 08/28/19 @ 11:07 by Micki Arney) Debility (Acute) Left buttock abscess (Acute) Klebsiella infection (Acute) Colostomy present (Acute) Rectum cancer (Acute) Liver metastases (Acute) - Physical Exam Vitals/I&O's: Vital Signs Temp Pulse Resp BP Pulse Ox 98.1 F 98 17 127/77 H 97 08/28/19 15:25 08/28/19 15:25 08/28/19 15:25 08/28/19 15:25 08/28/19 15:25 Oxygen Delivery Method Room Air Weight: 63 kg Body Mass Index (BMI) 20.5 Intake and Output for Last 24 Hours 08/27/19 08/28/19 08/29/19 23:59 23:59 23:59 Intake Total 1100 / 1100 600 / 600 240 / 240 Output Total 505 / 505 425 / 425 Balance 595 / 595 175 / 175 240 / 240 Current Medications Acetaminophen (Tylenol) 650 mg PO Q4H PRN PRN PRN Reason: Pain Score 1-03/07 Last Admin: 08/27/19 15:16 Dose: 650 mg Documented by: Amoxicillin/Clavulanate Potassium ([facility]in Tablet) [facility] Stop: 08/30/19 08:01 Last Admin: 08/29/19 07:42 Dose: 875 mg Documented by: Bisacodyl (Dulcolax) 10 mg PO DAILY PRN PRN Reason: Constipation Doxepin HCl (Sinequan) 25 mg PO QHS [facility] Last Admin: 08/28/19 19:57 Dose: 25 mg Documented by: Melatonin (Melatonin) 3 mg PO QHS [facility] Last Admin: 08/28/19 19:57 Dose: 3 mg Documented by: Morphine Sulfate (Ms Contin) 45 mg PO Q12 [facility] Last Admin: 08/29/19 05:16 Dose: 45 mg Documented by: Nutritional Formula (Lactose Free) (Ensure Clear) 120 ml PO 4X/DAY [facility] Last Admin: 08/29/19 11:48 Dose: 120 ml Documented by: Oxycodone HCl (Oxyir) 20 mg PO Q4H PRN PRN PRN Reason: Pain Score 6-10 Last Admin: 08/29/19 11:47 Dose: 20 mg Documented by: Polyethylene Glycol (Miralax) 17 gm PO DAILY [facility] Last Admin: 08/29/19 05:15 Dose: Not Given Documented by: Senna/Docusate Sodium (Senokot-S, Lawanda-Colace) 2 tablet PO BID PRN PRN Reason: Constipation Sodium Hypochlorite (Dakins Solution 0.25% (1/2 Strength)) 1 applic TOPICAL TID [facility]; Protocol Last Admin: 08/29/19 14:48 Dose: 1 applicatio Documented by: Tuberculin PPD (Tubersol, Aplisol, Ppd) 5 tu ID [id number] ONE Stop: 08/31/19 10:01 Discharge Diet: No Restrictions Discharge Activity: Return to Normal Activity, May Shower, Use Walker Weight Bearing Status: Weight bearing as tolerated Call your doctor if you observe: Fever of 101 or Higher, Inability to urinate, Inability to have a bowel movement, Shortness of breath, Chest pain, Uncontrolled pain Home Medications: Medications to take at Discharge Acetaminophen [Tylenol] 325 mg PO Q4H PRN PRN 08/23/19 Melatonin 3 mg PO QHS 08/23/19 Polyethylene Glycol 3350 [Miralax] 17 gm PO DAILY 08/23/19 Sodium Hypochlorite [Dakins Solution 0.25% (1/2 Strength)] 1 applic TOPICAL TID 08/23/19 Bisacodyl [Dulcolax] 10 mg PO DAILY PRN tablet 08/29/19 Doxepin HCl [Sinequan] 25 mg PO QHS capsule 08/29/19 Ensure Clear 120 ml PO 4X/DAY liquid 08/29/19 Oxycodone HCl [Roxicodone] 15 mg PO Q4H PRN PRN 7 Days #60 tab 08/29/19 Senna/Docusate Sodium [Senokot-S] 2 tablet PO BID PRN tablet 08/29/19 morphine SR tablet [Ms Contin] 45 mg PO Q12H 7 Days #42 tab 08/29/19 Following Prescrptions Were Given to Patient: morphine SR tablet [Ms Contin] 45 mg PO Q12H 7 Days #42 tab Prescription Printed Oxycodone HCl [Roxicodone] 15 mg PO Q4H PRN PRN 7 Days #60 tab PRN Reason: Pain Score 6-10/10 Prescription Printed Primary Care Physician: Care Physician,No Primary [Primary Care Provider] - Please follow up with your Primary Care Physician in: N/A. Please Follow Up With: Christian Cintron MD When: N/A. Please Follow Up With: Yaima Quach MD When: N/A. Please Follow Up With: [facility] When: N/A. Please Follow Up With: Miryam Chandler APRN-AG[facility] When: N/A. Please Follow Up With: Cruz Grover MD When: N/A. Please Follow Up With: Catherine Webb MD When: N/A. Disposition: Hospice Medical Facility Minutes spent on discharge:: 30 Patient Condition:: Poor Medical Necessity - Tobacco Use Smoking Status: Former smoker Tobacco Use: Cigarettes Meaningful Use Info Meaningful Use Diagnoses (Choose all that apply): None applicable
--- NOTE | 2019-08-29 14:57 | NURSING ---
hospice nurse in this AM, pt going [facility]PT hospice unit, transporting at 1730 today.
--- NOTE | 2019-08-29 15:23 | NURSING ---
Pt had requested that the colostomy appliance be emptied. noticed another leak near the umbilical area again. removed appliance and applied a new wound drainage bag. attempted to place half an Adapt ring from approx 7-11 o'clock to try to get slightly under the stoma to keep it up off skin level where the stool opening is. applied the wound drainage bag with a small amount of paste and added some comfeel to the outside of the appliance in a window pane fashion. pt is [facility] facility later today.
--- NOTE | 2019-08-29 15:58 | CASEMGMT ---
[facility] assessed pt and is eligible for IPU for a transition period, and then pt will transfer to [facility]. Pt completed Medicaid application and dtr brought in paperwork - faxed to Cory and notified [facility] of outcome. Pt to transfer to [facility] on this date at 5:30 pm MIGUEL Velasco
[2019-08-29 16:00] VITALS: BP 116/74; PULSE 102; RESP 18; TEMP 36.6; O2SAT 96
--- NOTE | 2019-08-29 17:06 | NURSING ---
[facility] here, pt sent with personal belongings, ostomy & drsg supplies. report called to hospice.
--- NOTE | 2019-09-04 13:25 | MDS.RN ---
Information for the mds was obtained from review of the clinical record, interview of resident, staff, and direct observation of resident's care.
== END 2019-08-29 17:12 | disposition hospice, inpatient (51) | DRG 949 ==
PROVIDERS: Admitting Provider Family Medicine Geriatric Medicine; Referring Provider Family Medicine Geriatric Medicine; Visit Provider Family Medicine Geriatric Medicine
DX: Z48.815 Encounter for surgical aftercare following surgery on the digestive system (principal); K61.1 Rectal abscess; L02.31 Cutaneous abscess of buttock; R64 Cachexia; C20 Malignant neoplasm of rectum; C78.7 Secondary malignant neoplasm of liver and intrahepatic bile duct; Z23 Encounter for immunization; Z93.3 Colostomy status; B96.1 Klebsiella pneumoniae [K. pneumoniae] as the cause of diseases classified elsewhere; Z87.891 Personal history of nicotine dependence
CPT/HCPCS: 36415; 74018; 80048; 85025; 97110; 97116; 97161; 97165; 97530; 97535; 97802; 99406; 90670; 90686